=== PATIENT | female | born 1990 | race Caucasian/White ===

== ENCOUNTER → 2016-05-20 | Outpatient (CLI) | payer BC ==
--- NOTE | 2016-05-20 10:35 | US ---
EXAMINATION TYPE: US OB anatomy transabd DATE OF EXAM: 05/20/2016 10:18 AM COMPARISON: NONE HISTORY: Anatomy Scan TECHNIQUE: Transabdominal (TA) EXAM MEASUREMENTS: GESTATIONAL AGE / DATING Physician Established: (19 weeks/4 days) EDC: 10/10/2016 Dates by LMP: Unknown Dates by First Scan: No prior Dates by Current Scan for: (19 weeks/5 days) EDC: 10/09/2016 SURVEY IUP: Single PLACENTA: Posterior PREVIA: No previa TRISTAN: 11.9 cm Normal CERVICAL LENGTH (transabdominal: norm > 3.0cm): 4.0 cm BIOMETRY PRESENTATION: Breech BPD: 4.5 cm 19 weeks / 5 days HC: 16.8 cm 19 weeks / 4 days AC: 14.5 cm 19 weeks / 6 days FL: 3.1 cm 19 weeks / 5 days ESTIMATED WEIGHT IN GRAMS: 307 grams ESTIMATED WEIGHT IN LBS/OZS: 0 lbs. 11 oz. WEIGHT PERCENTAGE BASED ON ESTABLISHED DATE: 53 % HC/AC: 1.16 Normal FL/AC: 21 Normal HEART RATE: 150 bpm RHYTHM: Normal ANATOMY SEEN (within normal limits): * Lateral Vent (< 1 cm) 0.6 cm * Cisterna Magna (< 1.1 cm) 0.3 cm * Nuchal Fold (< 0.6 cm) 0.3 cm * Cerebellum (varies with age) 2.0 cm Choroid Plexus (bilateral) Midline Falx Cavus Septi Pellucidi Four Chamber Heart Outflow tracts: LVOT/RVOT Stomach Situs Nose / Lips Diaphragm Kidneys (bilateral) Bladder Cord Insert Three Vessel Cord Longitudinal Spine Transverse Spine Arms (bilateral) Legs (bilateral) IMPRESSION: Single, viable IUP/ Visualized anatomy appeared wnl/ Growth parameters wnl
== END | disposition home or self-care (01) ==
LOC: RADUSWWP 09:33
PROVIDERS: ATTEND Obstetrics & Gynecology
DX: O36.61X0 Maternal care for excessive fetal growth, first trimester, not applicable or unspecified (principal); Z3A.19 19 weeks gestation of pregnancy
CPT/HCPCS: 76811

== ENCOUNTER 2016-10-02 14:59 | Inpatient (IN) | payer BC ==
--- NOTE | 2016-10-02 17:17 | US ---
EXAMINATION TYPE: US OB >= 14 wk fetus DATE OF EXAM: 10/02/2016 COMPARISON: US CLINICAL HISTORY: pt fell TECHNIQUE: GESTATIONAL AGE / DATING Physician Established: (38 weeks/6 days) EDC: 10/10/16 Dates by LMP: unknown Dates by First Scan: not available Dates by Current Scan: (36 weeks/1 days) EDC: 10/29/16 SURVEY IUP: Single PLACENTA: Fundal PREVIA: No Previa TRISTAN: 5.3 cm CERVICAL LENGTH (transabdominal: norm > 3.0cm): 1.9 cm CERVICAL LENGTH (transvaginal: norm> 2.5cm): Dr. Narvaez aware. BIOMETRY PRESENTATION: Vertex LIE: Longitudinal BPD: 9.2 cm 37 weeks / 1 days HC: 32.2 cm 36 weeks / 3 days AC: 33.2 cm 37 weeks / 0 days FL: 7.0 cm 36 weeks / 0 days ESTIMATED WEIGHT IN GRAMS: 3019 grams ESTIMATED WEIGHT IN LBS/OZS: 6 lbs. 10 oz. WEIGHT PERCENTAGE BASED ON ESTABLISHED DATES: 18% HC/AC: 0.97 FL/AC: 21.1 HEART RATE: 176 bpm RHYTHM: Normal Low TRISTAN, Dr. Narvaez aware. IMPRESSION: Amniotic fluid index is 5 cm which is borderline oligohydramnios. Cervix measures 2 cm and is closed.
--- NOTE | 2016-10-02 17:27 | P.HPOB ---
History of Present Illness H&P Date: 10/02/16 Chief Complaint: Oligohydramnios This patient is a pleasant 26-year-old 1 para 0 female estimated date of confinement 10/10/2016 estimated gestational age 38-6/7 weeks gestation who presents to labor and delivery after sustaining a fall. States that she tripped on a curb and hit the side of her abdomen. She said no vaginal bleeding but has had some decreased movement. care been uncomplicated. Evaluation here in labor and delivery shows reactive nonstress test and ultrasound is normal with the exception of oligohydramnios with fluid index of 5.3 cm. Review of Systems Constitutional: Denies chills, Denies fever Ears, nose, mouth and throat: Denies headache, Denies sore throat Cardiovascular: Denies chest pain, Denies shortness of breath Respiratory: Denies cough Gastrointestinal: Reports heartburn Genitourinary: Reports Menstruation: Reports amenorrhea Musculoskeletal: Reports as per HPI Integumentary: Denies pruritus, Denies rash Neurological: Denies numbness, Denies weakness Past Medical History Past Medical History: No Reported History History of Any Multi-Drug Resistant Organisms: None Reported Additional Past Surgical History / Comment(s): Patient has had oral surgery. Past Anesthesia/Blood Transfusion Reactions: No Reported Reaction Past Psychological History: No Psychological Hx Reported Smoking Status: Never smoker Past Alcohol Use History: None Reported Past Drug Use History: None Reported Medications and Allergies Home Medications Medication Instructions Recorded Confirmed Type Pnv,Calcium 72/Iron/Folic Acid 1 10/02/16 History [ Plus Tablet] Allergies Allergy/AdvReac Type Severity Reaction Status Date / Time No Known Allergies Allergy Verified 10/02/16 15:19 Exam - Vital Signs Vital signs: Intake and Output 10/02/16 10/02/16 10/02/16 06:59 14:59 22:59 Other: Weight 72.121 kg Patient Weight 10/03/16 06:59 Weight 72.121 kg - OBG Physical Exam Abdomen: bowel sounds normal, no diffuse tenderness, no bruit present, no guarding noted, no hepatomegaly, no splenomegaly, no mass Vulva: both: normal Vagina: normal moisture, no discharge Cervix: no lesion (The office shows a to be 3-4 cm dilated.), no discharge Uterus: enlarged (Vulvitis consistent with a term ) Results blood work shows she is oh positive, rubella immune, RPR nonreactive, HIV nonreactive, hepatitis B negative, ultrasounds have been normal. Ultrasound today shows a vertex fetus 6 lbs. 10 oz. with an TRISTAN of 5.3 cm. Strep was negative Assessment and Plan (1) Third trimester Narrative/Plan: This is a pleasant 26-year-old 1 para 0 female 38-6/7 weeks gestation status post fall with oligohydramnios. Is no evidence of rupture membranes at this time. Due to the oligohydramnios at term plan is to proceed with induction tomorrow she will be 39 weeks at that time. Finding was discussed with the patient and the recommendation for delivery and wishes to proceed. We' ll do continuous monitoring tonight and plan Pitocin induction tomorrow per protocol. Status: Acute (2) Oligohydramnios Status: Acute
[2016-10-02 18:52] VITALS: BMI 26.4
[2016-10-03] MEDS ORDERED: LACTATED RINGERS 1,000 ML IV SCH (05:30)
[2016-10-03] MEDS ORDERED: OXYTOCIN 10 UNIT/ML 1 ML VIAL IM PRN (05:30)
[2016-10-03] MEDS ORDERED: METHYLERGONOVINE 0.2 MG/ML 1 ML AMP IM PRN (05:30)
[2016-10-03] MEDS ORDERED: OXYTOCIN 20 UNITS/1000 ML NS 1,000 ML IV SCH (05:30)
[2016-10-03] MEDS ORDERED: CARBOPROST TROMETHAMINE 250 MCG/ML 1 ML AMP IM PRN (05:30)
[2016-10-03] MEDS ORDERED: TERBUTALINE 1 MG/ML VIAL SQ PRN (05:30)
[2016-10-03 06:01] LABS: Basophils # (A) 0.1 k/uL (0-0.2); Basophils % (A) 1 %; CH 33.9; CHCM 36.2; Eosinophils # (A) 0.2 k/uL (0-0.7); Eosinophils % (A) 2 %; HCT 36.2 % (34.0-46.0); HDW 3.01; HGB 12.8 gm/dL (11.4-16.0); Luc # (Auto) 0.14; Luc % (Auto) 2; Lymphocytes # (A) 2.3 k/uL (1.0-4.8); Lymphocytes % (A) 24 %; MCH 33.4 pg (25.0-35.0); MCHC 35.5 g/dL (31.0-37.0); MCV 94.1 fL (80.0-100.0); Mean Platelet Volume 7.3; Monocytes # (A) 0.5 k/uL (0-1.0); Monocytes % (A) 6 %; Neutrophils # (A) 6.3 k/uL (1.3-7.7); Neutrophils % (A) 66 %; RBC 3.84 m/uL (3.80-5.40); RDW 14.1 % (11.5-15.5); WBC 9.5 k/uL (3.8-10.6); WBC (Perox) 9.15
[2016-10-03] MEDS ORDERED: BUTORPHANOL 1 MG/ML 1 ML VIAL IV PRN (09:00)
[2016-10-03] MEDS: LIDOCAINE 1% (PF) 10 MG/ML (30 ML SDV) SQ PRN ×2 (09:24→11:57)
[2016-10-03] MEDS ORDERED: ACETAMINOPHEN TAB 325 MG TAB PO PRN (11:56)
[2016-10-03] MEDS ORDERED: BENZOCAINE/MENTHOL SPRAY 1 GM/SPRAY AEROSOL TOPICAL PRN (11:56)
[2016-10-03] MEDS ORDERED: Acetaminophen-Codeine 300-30mg TAB PO PRN ×2 (11:56)
[2016-10-03] MEDS ORDERED: WITCH HAZEL 1 EACH MED..PAD TOPICAL PRN (11:56)
[2016-10-03] MEDS ORDERED: SIMETHICONE 80 MG CHEWABLE PO PRN (11:56)
[2016-10-03] MEDS ORDERED: BISACODYL 10 MG SUPP RECTAL PRN (11:56)
[2016-10-03] MEDS ORDERED: diphenhydrAMINE 25 MG CAP PO PRN (11:56)
[2016-10-03] MEDS ORDERED: ZOLPIDEM 5 MG TAB PO PRN (11:56)
[2016-10-03] MEDS ORDERED: HYDROCORTISONE 2.5% RECTAL CREAM 30 GM TUBE RECTAL PRN (11:56)
[2016-10-03] MEDS ORDERED: LANOLIN CREAM 5 GM TUBE TOPICAL PRN (11:56)
[2016-10-03] MEDS ORDERED: diphenhydrAMINE 50 MG/ML 1 ML VIAL IVP PRN (11:56)
--- NOTE | 2016-10-03 12:38 | P.PROBDLV ---
Vaginal Delivery Note - . Vaginal Delivery Note: Vaginal delivery viable female Apgars 9 and 9 delivery time is 1010 hrs. Patient is a pleasant 26-year-old 1 para 0 female 39 weeks gestation who is admitted last evening after having a fall. Patient is noted have amniotic fluid index of 5 at that time. This morning patient has Pitocin augmentation of labor. She has artificial rupture membranes for clear fluid. She is 4 cm dilated. Patient's labor progresses. She does not request an epidural but does get half a milligram of Stadol at 8 cm for pain control. Patient begins pushing and does have some bradycardia to the 90s. At this time a midline episiotomy is made. Patient continues to push brings the head to the perineum. She does experience some more bradycardia at this time and I did attempt place a vacuum on the infant's head however could not get any sufficient pressure due to the excessive amount of hair. My Patient to push harder and she was able to deliver the infant's head straight occiput posterior over the perineum. Mouth and nares are bulb suctioned. There is no evidence of a nuchal cord. With gentle downward traction we then have deliver the anterior and posterior shoulder and rest this 's body. This is a vigorous viable female infant Apgars are 9 and 9 delivery time is 1010 hrs. Infant has spontaneous respiration and good cry and grossly appears normal. After delivery of the the umbilical cord is doubly clamped and cut appears to be trivascular. The placenta is spontaneously delivered intact. Inspection of the perineum and vagina does show some a evulsion of the vagina on bilaterally. Given nurse help me visualize these vaginal lacerations and a repaired with 3-0 Vicryl in the usual fashion. I did have some complete avulsion of the mucosa this was reapproximated again is best as possible. Inspection of the perineum does show a second-degree midline laceration without extension. This is repaired with 3-0 Vicryl in the usual fashion. All counts are correct 3. There are no complications. and mother are stable delivery room.
[2016-10-03] MEDS: IBUPROFEN 600 MG TAB PO PRN ×2 (13:18→19:41)
[2016-10-03] MEDS: SENNOSIDES-DOCUSATE SODIUM 1 EACH TAB PO SCH ×2 (19:41→19:47)
[2016-10-04] MEDS: IBUPROFEN 600 MG TAB PO PRN ×2 (04:16→11:31)
--- NOTE | 2016-10-04 06:47 | P.PNOBGVD ---
Subjective - Subjective Patient reports: Reports appetite normal, Reports voiding normally, Reports pain well controlled, Reports ambulating normally : doing well Objective - Latest Vital Signs Latest vital signs: Vital Signs Temp Pulse Resp BP Pulse Ox 10/04/16 04:00 97 F L 86 18 136/69 98 10/03/16 20:00 98.4 F 74 18 119/64 98 10/03/16 16:00 98.3 F 74 18 106/69 10/03/16 12:28 102 H 16 110/67 10/03/16 12:00 94 16 107/58 10/03/16 11:58 97.8 F 88 16 112/58 10/03/16 11:28 68 16 109/58 10/03/16 10:43 86 16 118/69 10/03/16 10:28 97.5 F L 65 16 111/62 Intake and Output 10/03/16 10/03/16 10/04/16 14:59 22:59 06:59 Intake Total 500 Balance 500 Intake: Oral 500 Other: Voiding Method Toilet Toilet # Voids 1 - Exam Lungs: bilateral: normal Chest: Normal S1, Normal S2 Extremities: Present: normal Abdomen: Present: normal appearance, soft Uterus: Present: normal, firm Assessment and Plan (1) Third trimester Narrative/Plan: day #1. Stable without complaints and wishes to go home. Vital signs are stable she is afebrile. Uterus is firm nontender she's having normal lochia. My impression is a normal course. Plan is to continue routine care discharge home later this morning. Current Visit: Yes Status: Acute Code(s): Z33.1 - STATE, INCIDENTAL SNOMED Code(s): 88399821 (2) Oligohydramnios Current Visit: Yes Status: Acute Code(s): O41.00X0 - OLIGOHYDRAMNIOS, UNSP TRIMESTER, NOT APPLICABLE OR UNSP SNOMED Code(s): 77228351
--- NOTE | 2016-10-04 06:51 | P.DS ---
Providers Date of admission: 10/02/16 17:00 Expected date of discharge: 10/04/16 Attending physician: Yonatan Narvaez Primary care physician: Stated None - Discharge Diagnosis(es) (1) Third trimester Current Visit: Yes Status: Acute (2) Oligohydramnios Current Visit: Yes Status: Acute Hospital Course: Please see dictated H&P for intimate details of this patient's admission. Brief summary this is a pleasant 26-year-old 1 para 0 female 39 weeks gestation who was admitted after a fall. Ultrasound showed oligohydramnios therefore induction was recommended. Patient went on induction of labor quickly went on to have a vaginal delivery of viable female . Please see dictated delivery note. day 1 patient's felt to be stable for discharge home follow up with me in 6 weeks. Procedures: Induction of labor and normal vaginal delivery Patient Condition at Discharge: Good Plan - Discharge Summary New Discharge Prescriptions: New Acetaminophen-Codeine 300-30mg [Tylenol w/codeine #3] 1 - 2 each PO Q4HR PRN #30 tab PRN Reason: Mild Pain exceeding Tylenol Ibuprofen [Motrin] 600 mg PO Q6HR PRN #40 tab PRN Reason: Mild Pain Or Fever >= 100.5 No Action Pnv,Calcium 72/Iron/Folic Acid [ Plus Tablet] 1 Discharge Medication List Pnv,Calcium 72/Iron/Folic Acid [ Plus Tablet] 1 10/02/16 [History] Acetaminophen-Codeine 300-30mg [Tylenol w/codeine #3] 1 - 2 each PO Q4HR PRN # 30 tab 10/04/16 [Rx] Ibuprofen [Motrin] 600 mg PO Q6HR PRN #40 tab 10/04/16 [Rx] Follow up Appointment(s)/Referral(s): Yonatan Narvaez MD [STAFF PHYSICIAN] - 11/14/16 11:15 am Patient Instructions/Handouts: Vaginal Delivery (DC) Activity/Diet/Wound Care/Special Instructions: No intercourse or anything per vagina for 6 weeks. Please call if any fever, chills, excessive vaginal bleeding, and/or abdominal pain. Discharge Disposition: HOME SELF-CARE
[2016-10-04] MEDS: SENNOSIDES-DOCUSATE SODIUM 1 EACH TAB PO SCH (08:01)
[2016-10-04 12:13] VITALS: BP 128/70; PULSE 103; RESP 16; TEMP 98.4
== END 2016-10-04 13:30 | disposition home or self-care (01) | DRG 775 ==
LOC: FBPOP 14:59 → UNDOADMIN 16:49 → 4FBP 16:49
PROVIDERS: ADMIT Obstetrics & Gynecology; ATTEND Obstetrics & Gynecology
PROC: 10E0XZZ Delivery of Products of Conception, External Approach (ICD-10-PCS; principal; 2016-10-03)
PROC: 0KQM0ZZ Repair Perineum Muscle, Open Approach (ICD-10-PCS; 2016-10-03)
PROC: 3E033VJ Introduction of Other Hormone into Peripheral Vein, Percutaneous Approach (ICD-10-PCS; 2016-10-03)
PROC: 10907ZC Drainage of Amniotic Fluid, Therapeutic from Products of Conception, Via Natural or Artificial Opening (ICD-10-PCS; 2016-10-03)
DX: O70.1 Second degree perineal laceration during delivery (principal); Z37.0 Single live birth; O41.03X0 Oligohydramnios, third trimester, not applicable or unspecified; O76 Abnormality in fetal heart rate and rhythm complicating labor and delivery; O36.8130 Decreased fetal movements, third trimester, not applicable or unspecified; Z3A.39 39 weeks gestation of pregnancy; W10.1XXA Fall (on)(from) sidewalk curb, initial encounter
CPT/HCPCS: 59025; 76805; 85025; 88307; 99213

== ENCOUNTER 2019-09-21 20:00 | Inpatient (IN) | payer BC ==
[2019-09-21] MEDS ORDERED: CARBOPROST TROMETHAMINE 250 MCG/ML 1 ML AMP IM PRN (21:14)
[2019-09-21] MEDS ORDERED: OXYTOCIN 10 UNIT/ML 1 ML VIAL IM PRN (21:14)
[2019-09-21] MEDS ORDERED: METHYLERGONOVINE 0.2 MG/ML 1 ML AMP IM PRN (21:14)
[2019-09-21] MEDS ORDERED: TERBUTALINE 1 MG/ML VIAL SQ PRN (21:14)
[2019-09-21] MEDS ORDERED: LIDOCAINE 0.5% (PF) 5 MG/ML (50 ML SDV) SQ PRN (21:14)
[2019-09-21] MEDS ORDERED: OXYTOCIN 30 UNITS/500 ML NS 30 UNIT in SALINE 1 500ML.BAG IV SCH (21:15)
[2019-09-21] MEDS ORDERED: LACTATED RINGERS 1,000 ML IV SCH (21:15)
[2019-09-21 21:59] LABS: Basophils % (A) 0 %; Eosinophils # (A) 0.1 k/uL (0-0.7); Eosinophils % (A) 1 %; HCT 36.1 % (34.0-46.0); HGB 12.3 gm/dL (11.4-16.0); Lymphocytes # (A) 1.4 k/uL (1.0-4.8); Lymphocytes % (A) 15 %; MCH 33.9 pg (25.0-35.0); MCV 99.8 fL (80.0-100.0); Mean Platelet Volume 7.4; Monocytes # (A) 0.5 k/uL (0-1.0); Monocytes % (A) 6 %; Neutrophils # (A) 7.3 k/uL (1.3-7.7); Neutrophils % (A) 77 %; Platelet Count 218 k/uL (150-450); RBC 3.62 m/uL (3.80-5.40); RDW 13.2 % (11.5-15.5); WBC 9.6 k/uL (3.8-10.6)
--- NOTE | 2019-09-21 22:46 | P.HPOB ---
History of Present Illness H&P Date: 09/21/19 Chief Complaint: SROM 29-year-old presents at 37 weeks and 1 day was spent patient's rupture membranes. She had a very strong contraction and had some spotting around 6:30 PM today. She presented to labor and delivery where an amnio sure was positive. Her cervix is 3 cm dilated, 60% effaced, and -2 station. She is lore irregularly. heart tones are 130 with moderate variability and reactive. Review of Systems All systems: negative Constitutional: Denies chills, Denies fever Eyes: denies blurred vision, denies pain Ears, nose, mouth and throat: Denies headache, Denies sore throat Cardiovascular: Denies chest pain, Denies shortness of breath Respiratory: Denies cough Gastrointestinal: Denies abdominal pain, Denies diarrhea, Denies nausea, Denies vomiting Genitourinary: Denies dysuria, Denies hematuria Musculoskeletal: Denies myalgias Integumentary: Denies pruritus, Denies rash Neurological: Denies numbness, Denies weakness Psychiatric: Denies anxiety, Denies depression Endocrine: Denies fatigue, Denies weight change Past Medical History Past Medical History: No Reported History Additional Past Medical History / Comment(s): Obstetric history: First was a vaginal delivery at 39 weeks, 6 lbs. 11 oz. complicated by oligohyd ramnios. This is her second . She's had care with Dr. Narvaez since 9 weeks gestation. Normal anatomy ultrasound. Abnormal 1 hour but normal 3 hour gtt. Ultrasound at 35 weeks showed 4 lbs. 14 oz., 31 percentile with a normal TRISTAN. GBS negative. Blood type is O+, antibodies n egative, rubella immune, hepatitis B negative, treponema antibody negative. History of Any Multi-Drug Resistant Organisms: None Reported Additional Past Surgical History / Comment(s): Patient has had oral surgery. Past Anesthesia/Blood Transfusion Reactions: No Reported Reaction Smoking Status: Never smoker - Past Family History Mother Family Medical History: Hypertension Brother(s) Additional Family Medical History / Comment(s): bicuspid aortic valve Medications and Allergies Home Medications Medication Instructions Recorded Confirmed Type Pnv,Calcium 72/Iron/Folic Acid 1 tab PO DAILY 10/02/16 09/21/19 History [ Plus Tablet] Acetaminophen [Tylenol] 1,000 mg PO Q6HR PRN 09/21/19 09/21/19 History Allergies Allergy/AdvReac Type Severity Reaction Status Date / Time No Known Allergies Allergy Verified 09/21/19 20:19 Exam Osteopathic Statement: *. No significant issues noted on an osteopathic structural exam other than those noted in the History and Physical/Consult. Intake and Output 09/21/19 09/21/19 09/21/19 06:59 14:59 22:59 Other: Weight 67.585 kg Heart: Regular rate and rhythm Lungs: Clear to auscultation bilaterally Abdomen: Soft, nontender Extremities: Negative Homans sign Results Result Diagrams: 09/21/19 21:00 Abnormal Lab Results - Last 24 Hours (Table) 09/21/19 Range/Units 21:00 RBC 3.62 L (3.80-5.40) m/uL Assessment and Plan (1) Spontaneous rupture of membranes Current Visit: Yes Status: Acute Code(s): [id number] - SNOMED Code(s): 329005978 Plan: 1. Admit to family place 2. Pitocin augmentation 3. Anticipate normal vaginal delivery
[2019-09-22] MEDS ORDERED: BUTORPHANOL 1 MG/ML 1 ML VIAL IV PRN (00:33)
[2019-09-22] MEDS ORDERED: diphenhydrAMINE 50 MG/ML 1 ML VIAL IVP PRN ×2 (03:05)
[2019-09-22] MEDS ORDERED: diphenhydrAMINE 50 MG CAP PO PRN (03:05)
[2019-09-22] MEDS ORDERED: diphenhydrAMINE 25 MG CAP PO PRN (03:05)
[2019-09-22] MEDS ORDERED: SIMETHICONE 80 MG CHEWABLE PO PRN (03:05)
[2019-09-22] MEDS ORDERED: HYDROCORTISONE 2.5% RECTAL CREAM 30 GM TUBE RECTAL PRN (03:05)
[2019-09-22] MEDS ORDERED: WITCH HAZEL 1 EACH MED..PAD TOPICAL PRN (03:05)
[2019-09-22] MEDS ORDERED: BENZOCAINE/MENTHOL SPRAY 1 GM/SPRAY AEROSOL TOPICAL PRN (03:05)
[2019-09-22] MEDS ORDERED: LANOLIN CREAM 5 GM TUBE TOPICAL PRN (03:05)
--- NOTE | 2019-09-22 03:08 | P.PROBDLV ---
Vaginal Delivery Note - . Vaginal Delivery Note: 29-year-old presents at 37 weeks and 1 day was spent patient's rupture membranes. She had a very strong contraction and had some spotting around 6:30 PM today. She presented to labor and delivery where an amnio sure was positive around 8:30 PM Her cervix is 3 cm dilated, 60% effaced, and -2 station. She is lore irregularly. heart tones are 130 with moderate variability and reactive. She was admitted to [facility] and Pitocin augmentation was started. Her cervix was completely dilated at 2:09 AM. She pushed, delivered a viable female over intact perineum at 2:13 AM. Head delivered ROP, anterior shoulder delivered gentle downward guidance of the posterior shoulder and rest of body. Nose and mouth bulb suctioned, cord clamped and cut, placed mother's abdomen. Apgars 8, 9, weight 5 lbs. 7 oz. Placenta delivered spontaneously, intact with three-vessel cord at 2:16 AM. Vagina, cervix, and perineum were inspected. Second-degree midline laceration with the sulcal extension on the right was repaired with 2-0 Vicryl and 3-0 Vicryl. Estimated blood loss 700 mL. Mother and baby in stable condition.
[2019-09-22] MEDS ORDERED: OXYTOCIN 20 UNITS/1000 ML NS 1,000 ML IV SCH (03:15)
[2019-09-22] MEDS ORDERED: ZOLPIDEM 5 MG TAB PO PRN (03:30)
[2019-09-22] MEDS: ACETAMINOPHEN TAB 325 MG TAB PO PRN ×4 (03:34→21:26)
[2019-09-22] MEDS: IBUPROFEN 600 MG TAB PO PRN ×3 (06:26→18:26)
[2019-09-22] MEDS: SENNOSIDES-DOCUSATE SODIUM 1 EACH TAB PO SCH ×2 (08:58→21:26)
[2019-09-23] MEDS: IBUPROFEN 600 MG TAB PO PRN (03:43)
--- NOTE | 2019-09-23 06:38 | P.PNOBGVD ---
Subjective - Subjective Patient reports: Reports appetite normal, Reports voiding normally, Reports pain well controlled, Reports ambulating normally : doing well Objective - Latest Vital Signs Latest vital signs: Vital Signs Temp Pulse Resp BP Pulse Ox 09/23/19 04:00 98.7 F 140 H 48 H 09/22/19 20:00 98.2 F 74 16 118/58 09/22/19 16:00 98.1 F 74 16 86/50 09/22/19 12:00 98.1 F 68 16 103/58 09/22/19 08:00 98.3 F 62 16 105/56 100 Intake and Output 09/22/19 09/22/19 09/23/19 14:59 22:59 06:59 Intake Total 1000 Balance 1000 Intake: IV 1000 Other: # Voids 1 1 - Exam Lungs: bilateral: normal Chest: Normal S1, Normal S2 Extremities: Present: normal Abdomen: Present: normal appearance, soft Uterus: Present: normal, firm Assessment and Plan Assessment: day #1. Patient is resting without complaints wishes to go home. Vital signs are stable she is afebrile. Uterus is firm nontender she's having normal lochia. My impression this is a normal course. Plan is to continue routine care discharge home this morning (1) Normal vaginal delivery Current Visit: Yes Status: Acute Code(s): O80 - ENCOUNTER FOR FULL-TERM UNCOMPLICATED DELIVERY SNOMED Code(s): 36953900
[2019-09-23 06:41] LABS: Basophils % (A) 0 %; Eosinophils # (A) 0.1 k/uL (0-0.7); Eosinophils % (A) 1 %; HCT 24.3 % (34.0-46.0); Lymphocytes # (A) 1.7 k/uL (1.0-4.8); Lymphocytes % (A) 15 %; MCH 33.8 pg (25.0-35.0); MCHC 33.4 g/dL (31.0-37.0); MCV 101.2 fL (80.0-100.0); Macrocytosis Slight; Mean Platelet Volume 7.9; Monocytes # (A) 0.4 k/uL (0-1.0); Monocytes % (A) 3 %; Neutrophils # (A) 8.7 k/uL (1.3-7.7); Neutrophils % (A) 79 %; Platelet Count 186 k/uL (150-450); RDW 13.5 % (11.5-15.5)
--- NOTE | 2019-09-23 06:43 | P.DS ---
Providers Date of admission: 09/21/19 21:08 Expected date of discharge: 09/23/19 Attending physician: Yonatan Narvaez Primary care physician: Stated None - Discharge Diagnosis(es) (1) Normal vaginal delivery Current Visit: Yes Status: Acute Hospital Course: Please see dictated H&P for intimate details of this patient's admission. Brief summary this is a pleasant 29-year-old 2 para 1 female 37-2/7 weeks gestation who is admitted to labor and delivery with spontaneous rupture membranes in early labor. Patient quickly goes on to have a vaginal delivery viable female infant. Please see dictated delivery note. day 1 patient's felt be stable for discharge home follow up with me in 6 weeks Procedures: Normal spontaneous vaginal delivery Patient Condition at Discharge: Good Plan - Discharge Summary New Discharge Prescriptions: New Ibuprofen [Motrin] 600 mg PO Q6HR PRN #40 tab PRN Reason: Mild Pain Or Fever >= 100.5 No Action Pnv,Calcium 72/Iron/Folic Acid [ Plus Tablet] 1 tab PO DAILY Acetaminophen [Tylenol] 1,000 mg PO Q6HR PRN PRN Reason: Pain Discharge Medication List Pnv,Calcium 72/Iron/Folic Acid [ Plus Tablet] 1 tab PO DAILY 10/02/16 [History] Acetaminophen [Tylenol] 1,000 mg PO Q6HR PRN 09/21/19 [History] Ibuprofen [Motrin] 600 mg PO Q6HR PRN #40 tab 09/23/19 [Rx] Follow up Appointment(s)/Referral(s): Yonatan Narvaez MD [STAFF PHYSICIAN] - 6 Weeks Patient Instructions/Handouts: Vaginal Delivery (DC) Discharge Disposition: HOME SELF-CARE
[2019-09-23 06:53] LABS: HGB 8.1 gm/dL (11.4-16.0)
[2019-09-23] MEDS: SENNOSIDES-DOCUSATE SODIUM 1 EACH TAB PO SCH (07:56)
[2019-09-23 09:09] VITALS: BP 102/57; PULSE 78; RESP 18; TEMP 98.2
--- NOTE | 2019-09-26 07:31 | P.MSEPDOC ---
Presenting Problems - Arrival Data Date of Arrival on Unit: 09/21/19 Time of Arrival on Unit: 21:08 Mode of Transport: Ambulatory - Complaint OB-Reason for Admission/Chief Complaint: Yaya Bleeding Comment: back pain Medical History - Information : 2 Para: 1 Term: 1 : 0 Abortions: Spontaneous or Elective: 0 Number of Living Children: 1 - Gestational Age Gestational Age by COREY (wks/days): 37 Weeks and 2 Days - History Complications: Other Comment: infant is SGA Review of Systems - Review of Systems Constitutional: No problems Breast: No problems ENT: No problems Cardiovascular: No problems Respiratory: No problems Gastrointestinal: No problems Genitourinary: No problems Musculoskeletal: No problems Neurological: No problems Skin: No problems Vital Signs - Temperature Temperature: 98.2 F Temperature Source: Oral - Pulse Right Pulse Rate: 78 Pulse Assessment Method: Automatic Cuff - Respirations Respiratory Rate: 18 Oxygen Delivery Method: Room Air O2 Sat by Pulse Oximetry: 98 - Blood Pressure Right Arm Blood Pressure: 102/57 Blood Pressure Mean: 72 Blood Pressure Source: Automatic Cuff Medical Screen Scoring (Pre) - Cervical Exam Dilation: 1-3 cm = 1 Membranes: Ruptured = 3 - Uterine Contractions Frequency: N/A Duration: N/A Intensity: N/A - Maternal Vital Signs Maternal Temperature: N/A Maternal Blood Pressure: N/A Signs of Preeclampsia: N/A Maternal Respirations: N/A - Maternal Trauma Maternal Trauma: N/A - Assessment - Baby A Baseline FHR: 135 Heart Rate - NICHD Category: Category II (Indeterminate) = 3 NST: Reactive Position: N/A Station: N/A - Total Score - Baby A Total Score - Baby A: 7 - Total Score - Baby B Total Score - Baby B: 4 - Total Score - Baby C Total Score - Baby C: 4 - Level of Risk - Baby A Level of Risk - Baby A: Medium (6-9) - Level of Risk - Baby B Level of Risk - Baby B: Low (0-5) - Level of Risk - Baby C Level of Risk - Baby C: Low (0-5) Physician Notification (Pre) - Physician Notified Physician Notified Date: 09/21/19 New Order Received: Yes - Notification Comment Comment: admit pt Medical Screen Scoring (Post) - Cervical Exam Dilation: Exam Deferred Effacement: Exam Deferred - Uterine Contractions Frequency: N/A - Maternal Vital Signs Maternal Temperature: N/A Maternal Blood Pressure: N/A Signs of Preeclampsia: N/A Maternal Respirations: N/A - Pain Assessment Pain Scale Used: Numeric (1 - 10) Pain Intensity: 2 Pain Management Goal: 3 Pain Description: *Acute Pain Frequency: Intermittent - Maternal Trauma Maternal Trauma: N/A - Assessment - Baby A Heart Rate: 135 Heart Rate - NICHD Category: Category II (Indeterminate) = 3 NST: Reactive Position: N/A Station: N/A - Total Score Total Score - Baby A: 3 Total Score - Baby B: 0 Total Score - Baby C: 0 - Post Treatment Level of Risk Post Treatment Level of Risk - Baby A: Low (0-5) Post Treatment Level of Risk - Baby B: Low (0-5) Post Treatment Level of Risk - Baby C: Low (0-5) Physician Notification (Post) - Physician Notified Physician Notified Date: 09/21/19 Physician Notified Time: 20:41 Physician/Practitioner Notified:: Hna Spoke With: Han Disposition - Disposition OB Disposition: Admit, LDRP Suite Transferred to:: In-patient Discharge Date: 09/23/19 Discharge Time: 07:50 I agree with the RN Medical Screening Exam: Yes Risk & Benefit of care provided described in d/c instruction: Yes Diagnosis: ENCOUNTER FOR FULL-TERM UNCOMPLICATED DELIVERY
== END 2019-09-23 07:50 | disposition home or self-care (01) | DRG 807 ==
LOC: FBPOP 20:00 → 4FBP 21:08
PROVIDERS: ADMIT Obstetrics & Gynecology; ATTEND Obstetrics & Gynecology
PROC: 10E0XZZ Delivery of Products of Conception, External Approach (ICD-10-PCS; principal; 2019-09-21)
PROC: 0KQM0ZZ Repair Perineum Muscle, Open Approach (ICD-10-PCS; principal; 2019-09-21)
DX: O42.02 Full-term premature rupture of membranes, onset of labor within 24 hours of rupture (principal); Z37.0 Single live birth; Z3A.37 37 weeks gestation of pregnancy; O70.1 Second degree perineal laceration during delivery; Z82.49 Family history of ischemic heart disease and other diseases of the circulatory system
CPT/HCPCS: 59025; 84112; 85025; 86850; 86900; 86901; 88307; 99213

== ENCOUNTER → 2024-07-28 | Outpatient (CLI) | payer OTHER ==
--- NOTE | 2024-07-28 15:06 | CA ---
Transthoracic Echo Report Name: Mary Self Age: 34 Gender: F : 1990 Exam Date: 07/28/2024 14:19 Exam Location: [facility] Ht (in): 65 Wt (lb): 122 Ordering Physician: Jesus Chen DO Attending/Referring Phys: Winnie Dumont PAC [employer] Maura Riley RDCS Procedure CPT: Indications: echo Cardiac Hx: Technical Quality: Good Contrast 1: Total Dose (mL): Contrast 2: Total Dose (mL): MEASUREMENTS (Male / Female) Normal Values 2D ECHO LV Diastolic Diameter PLAX 4.5 cm 4.2 - 5.9 / 3.9 - 5.3 cm LV Systolic Diameter PLAX 2.6 cm IVS Diastolic Thickness 0.6 cm 0.6 - 1.0 / 0.6 - 0.9 cm LVPW Diastolic Thickness 0.7 cm 0.6 - 1.0 / 0.6 - 0.9 cm LV Relative Wall Thickness 0.3 RV Internal Dim ED PLAX 2.7 cm LA Systolic Diameter LX 2.6 cm 3.0 - 4.0 / 2.7 - 3.8 cm LV Diastolic Volume MOD BP 94.3 cm??? 67 - 155 / 56 - 104 cm??? LV Systolic Volume MOD BP 33.8 cm??? 22 - 58 / 19 - 49 cm??? LV Ejection Fraction MOD BP 64.1 % >= 55 % LV Cardiac Index MOD BP 2852.8 cm???/min???m??? LV Diastolic Volume MOD 4C 82.0 cm??? LV Systolic Volume MOD 4C 27.6 cm??? LV Ejection Fraction MOD 4C 66.3 % LV Cardiac Index MOD 4C 2565.7 cm???/min???m??? LV Diastolic Length 4C 6.7 cm LV Systolic Length 4C 4.7 cm LV Diastolic Volume MOD 2C 108.6 cm??? LV Systolic Volume MOD 2C 36.2 cm??? LV Ejection Fraction MOD 2C 66.7 % LV Cardiac Index MOD 2C 3416.8 cm???/min???m??? LV Diastolic Length 2C 6.7 cm LV Systolic Length 2C 5.4 cm LA Volume 21.5 cm??? 18 - 58 / 22 - 52 cm??? LA Volume Index 13.6 cm???/m??? 16 - 28 cm???/m??? M-MODE Aortic Root Diameter MM 2.2 cm DOPPLER AV Peak Velocity 144.8 cm/s AV Peak Gradient 8.4 mmHg MV Area PHT 5.4 cm??? Mitral E Point Velocity 114.4 cm/s Mitral A Point Velocity 88.0 cm/s Mitral E to A Ratio 1.3 MV Deceleration Time 141.2 ms TR Peak Velocity 229.3 cm/s TR Peak Gradient 21.0 mmHg Right Ventricular Systolic Press 26.0 mmHg FINDINGS Left Ventricle Left ventricular ejection fraction is estimated at 55-60 %. Left ventricular cavity size normal. Left ventricular wall thickness normal. Right Ventricle Normal right ventricular size. Right ventricular systolic pressure within normal limits. Right Atrium Normal right atrial size. No right atrial thrombus or mass seen. Left Atrium Normal left atrial size. No left atrial thrombus or mass present. Mitral Valve Structurally normal mitral valve. No mitral stenosis, regurgitation or prolapse. Aortic Valve Trileaflet aortic valve. No aortic valve stenosis or regurgitation. Tricuspid Valve Structurally normal tricuspid valve. Trace to mild tricuspid regurgitation. Pulmonic Valve Structurally normal pulmonic valve. Trace pulmonic regurgitation. Pericardium No pericardial effusion. Aorta Normal size aortic root and proximal ascending aorta. CONCLUSIONS Left ventricular ejection fraction 55 to 60% RVSP 26 No mitral regurgitation Trace to mild tricuspid regurgitation No pericardial effusion Previewed by: Dr. David Crabtree DO (Electronically Signed) Final Date: 28 Jul 2024 15:05
== END | disposition home or self-care (01) ==
LOC: RADECHMAIN 13:41
PROVIDERS: ATTEND Family Medicine
DX: I36.1 Nonrheumatic tricuspid (valve) insufficiency (principal); R01.1 Cardiac murmur, unspecified
CPT/HCPCS: 93306